=== PATIENT | male | born 1995 | race African-American/Black ===

== ENCOUNTER 2016-09-13 13:49 | Emergency (ER) | payer BC ==
[2016-09-13 15:14] VITALS: BP 118/59
--- NOTE | 2016-09-13 15:59 | EDM.PDOC ---
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 Does not have a local provider. No fever. Is sexually active. No lymphadenopathy. Is worried about thrush. Is not diabetic. 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 And under his tongue. ) Respiratory: Reports: No Symptoms Cardiovascular: Reports: No Symptoms GI/Abdominal: Reports: No Symptoms : Reports: Dysuria (mild). Denies: Frequency, Hematuria, Incontinence, Urgency, Urinary Retention Musculoskeletal: Reports: No Symptoms Skin: Reports: No Symptoms Neurological: Reports: No Symptoms ED EXAM, RENAL/ - Physical Exam Exam: See Below Exam Limited By: No Limitations General Appearance: Alert, WD/WN, No Apparent Distress Eye Exam: Bilateral Eye: Normal Inspection Nose: Normal Inspection, No Blood Throat/Mouth: Normal Lips, Normal Teeth, Normal Voice, No Airway Compromise, Other (small ulceration under the R side of his tongue. Erythema to the back of his mouth, no white patches. ) Head: Atraumatic, Normocephalic Neck: Normal Inspection Respiratory/Chest: No Respiratory Distress, No Accessory Muscle Use Cardiovascular: Regular Rate, Rhythm Neurological: Alert, Oriented, CN II-XII Intact, Normal Cognition, No Motor/ Sensory Deficits Psychiatric: Normal Affect, Normal Mood Skin Exam: Warm, Dry, Intact, Normal Color, No Rash Lymphatic: No Adenopathy Course - Vital Signs Last Recorded V/S: Last Vital Signs Temp 37.4 C 09/13/16 15:10 Pulse 95 09/13/16 15:10 Resp 16 09/13/16 15:10 BP 118/59 L 09/13/16 15:10 Pulse Ox 100 09/13/16 15:10 - Orders/Labs/Meds Orders: Active Orders 24 hr Category Date Time Status Accu Check [Blood Glucose Check, Bedside] [RC] ONETIME Care 09/13/16 14:41 Active CHLAMYDIA,AND GC BY APTIMA Routine Lab 09/13/16 15:25 Received Labs: Laboratory Tests 09/13/16 09/13/16 Range/Units 15:19 15:25 POC Glucose 80 (80-116) mg/dL Urine Color Yellow (YELLOW) Urine Appearance Clear (CLEAR) Urine pH 6.0 (5.0-6.5) Ur Specific [place] 1.015 (1.010-1.025) Urine Protein Negative (NEGATIVE) mg/dL Urine Glucose (UA) Normal (NEGATIVE) mg/dL Urine Ketones 15 H (NEGATIVE) mg/dL Urine Occult Blood Negative (NEGATIVE) Urine Nitrite Negative (NEGATIVE) Urine Bilirubin Negative (NEGATIVE) Urine Urobilinogen 1 H (NEGATIVE) mg/dL Ur Leukocyte Esterase Negative (NEGATIVE) Urine RBC 0-5 (0) Urine WBC 0-5 (0) Ur Squamous Epith Cells Moderate H (NS,R,O) Urine Bacteria Moderate H (NS) Departure - Departure Time of Disposition: 16:01 Disposition: Home, Self-Care 01 Condition: Good Clinical Impression: Urethritis, Canker sores oral - Discharge Information Prescriptions: Doxycycline [Vibra-Tabs] 100 mg PO Q12HR #20 tab Referrals: PCP,Not In Area [Primary Care Provider] - Forms: ED Department Discharge Additional Instructions: Take doxycycline 100 mg every 12 hrs until gone. May take acetaminophen 1000 mg every 6 hrs as needed for pain relief. Must use protection(condoms) until medically cleared. Recheck in a local clinic Monday of this week, call for an appt. - My Orders Last 24 Hours: My Active Orders 09/13/16 14:41 Accu Check [Blood Glucose Check, Bedside] [RC] ONETIME 09/13/16 15:25 CHLAMYDIA,AND GC BY APTIMA Routine - Assessment/Plan Last 24 Hours: My Active Orders 09/13/16 14:41 Accu Check [Blood Glucose Check, Bedside] [RC] ONETIME 09/13/16 15:25 CHLAMYDIA,AND GC BY APTIMA Routine
== END 2016-09-13 16:05 | disposition home or self-care (01) ==
LOC: FB.ED 13:49
DX: N34.2 Other urethritis (principal); K12.0 Recurrent oral aphthae; Z91.018 Allergy to other foods
CPT/HCPCS: 81001; 82962; 87491; 87591; 99282